=== PATIENT | female | born 1975 | race American Indian/Alaskan Native ===

== ENCOUNTER 2021-10-23 00:03 | Emergency (ER) | payer OTHER ==
[2021-10-23 01:18] LABS: Basophils % (Auto) 0.6 % (0.0-1.8); Eosinophils % (Auto) 0.3 % (0.0-4.3); Hematocrit 41.6 % (30.3-42.9); Hemoglobin 13.7 gm/dl (10.1-14.3); Lymphocytes # (Auto) 1.1 K/mm3 (1.2-5.4); Lymphocytes % (Auto) 22.7 % (13.4-35.0); Mean Corpuscular HGB Conc 33 % (30-34); Mean Corpuscular Volume 77 fl (79-97); Monocytes # (Auto) 0.7 K/mm3 (0.0-0.8); Monocytes % (Auto) 13.5 % (0.0-7.3); Platelet Count 171 K/mm3 (140-440); Red Blood Count 5.38 M/mm3 (3.65-5.03); Red Cell Distribution Width 15.8 % (13.2-15.2)
[2021-10-23 01:34] LABS: Alanine Aminotransferase 43 units/L (7-56); Albumin 4.5 g/dL (3.9-5); BUN/Creatinine Ratio 10; Blood Urea Nitrogen 9 mg/dL (7-17); Calcium 8.7 mg/dL (8.4-10.2); Hemolysis Index 3
[2021-10-23] MEDS ORDERED: HYOSCYAMINE SUBL 0.125 MG TAB SL ONE (06:35)
[2021-10-23] MEDS ORDERED: ONDANSETRON 4 MG ODT TAB PO STA (06:35)
[2021-10-23] MEDS ORDERED: SODIUM CHLORIDE 0.9% 1000 ML 1,000 ML IV ONE ×2 (15:42→18:14)
--- NOTE | 2021-10-23 17:57 | Emergency Department Report ---
ED Abdominal Pain HPI - General Chief Complaint: Nausea/Vomiting/Diarrhea Stated Complaint: NAUSEA PUI?: No Time Seen by Provider: 10/23/21 05:05 Source: patient Mode of arrival: Ambulatory Limitations: No Limitations - History of Present Illness Initial Comments: Patient is a 46-year-old obese female that comes to the ER with abdominal pain, generalized in nature. She describes it as a cramping. Associated with nausea and vomiting. No diarrhea. She is due for her menses at the current time. MD Complaint: abdominal pain -: Gradual, days(s) Location: diffuse Severity scale (0 -10): 3 Quality: cramping Consistency: intermittent Improves With: nothing Worsens With: nothing Associated Symptoms: denies other symptoms, nausea, vomiting. denies: diarrhea, fever, chills, constipation, dysuria, hematemesis, hematochezia, melena, hematuria, anorexia, syncope - Related Data Allergies Allergy/AdvReac Type Severity Reaction Status Date / Time No Known Allergies Allergy Unverified 10/23/21 00:20 ED Review of Systems ROS: Stated complaint: NAUSEA Other details as noted in HPI Comment: All other systems reviewed and negative ED Past Medical Hx - Past Medical History Previous Medical History?: Yes Additional medical history: Obesity - Surgical History Past Surgical History?: Yes Additional Surgical History: Shoulder, Hamida talk - Family History Family history: no significant - Social History Smoking Status: Never Smoker Substance Use Type: None ED Physical Exam - General Limitations: No Limitations General appearance: alert, in no apparent distress - Head Head exam: Present: atraumatic, normocephalic - Eye Eye exam: Present: normal appearance - ENT ENT exam: Present: mucous membranes moist - Neck Neck exam: Present: normal inspection - Respiratory Respiratory exam: Present: normal lung sounds bilaterally. Absent: respiratory distress - Cardiovascular Cardiovascular Exam: Present: regular rate, normal rhythm. Absent: systolic murmur, diastolic murmur, rubs, gallop - GI/Abdominal GI/Abdominal exam: Present: soft, normal bowel sounds - Extremities Exam Extremities exam: Present: normal inspection - Back Exam Back exam: Present: normal inspection - Neurological Exam Neurological exam: Present: alert, oriented X3 - Psychiatric Psychiatric exam: Present: normal affect, normal mood - Skin Skin exam: Present: warm, dry, intact, normal color. Absent: rash ED Course Vital Signs 10/23/21 10/23/21 00:17 08:40 Temperature 98.9 F 98.3 F Pulse Rate 91 H 78 Respiratory 20 18 Rate Blood Pressure 172/117 142/90 [Right] O2 Sat by Pulse 95 97 Oximetry ED Medical Decision Making - Lab Data Result diagrams: 10/23/21 00:45 10/23/21 00:45 - Medical Decision Making 1800 patient remains in [facility]. I have reinterviewed her, updated orders. Her UA is pending and then she will go for CT scan. Critical care attestation.: If time is entered above; I have spent that time in minutes in the direct care of this critically ill patient, excluding procedure time. ED Disposition Clinical Impression: Abdominal pain Disposition: 30 STILL A PATIENT Is pt being admited?: No Does the pt Need Aspirin: No Condition: Stable Referrals: NEMO REVELES MD [Primary Care Provider] - 3-5 Days
[2021-10-23] MEDS ORDERED: ONDANSETRON 4 MG/2 ML INJ IV ONE ×2 (18:00→18:14)
[2021-10-23] MEDS ORDERED: DICYCLOMINE 10 MG CAP PO ONE (18:15)
--- NOTE | 2021-10-23 18:18 | Emergency Department Report ---
ED N/V/D HPI - General Chief complaint: Nausea/Vomiting/Diarrhea Stated complaint: NAUSEA Time Seen by Provider: 10/23/21 05:05 Source: patient Mode of arrival: Ambulatory Limitations: No Limitations - History of Present Illness Initial comments: 46-year-old female with history of gallstones presents to the emergency department complaining of nausea, vomiting, and moderate epigastric abdominal cramping since 11 AM yesterday. Patient denies any fever, chills, diarrhea, or constipation. - Related Data Allergies Allergy/AdvReac Type Severity Reaction Status Date / Time No Known Allergies Allergy Unverified 10/23/21 00:20 ED Review of Systems ROS: Stated complaint: NAUSEA Other details as noted in HPI Constitutional: denies: chills, fever Eyes: denies: eye pain, eye discharge, vision change ENT: denies: ear pain, throat pain Respiratory: denies: cough, shortness of breath, wheezing Cardiovascular: denies: chest pain, palpitations Endocrine: no symptoms reported Gastrointestinal: denies: abdominal pain, nausea, diarrhea Genitourinary: denies: urgency, dysuria, discharge Musculoskeletal: denies: back pain, joint swelling, arthralgia Skin: denies: rash, lesions Neurological: denies: headache, weakness, paresthesias Psychiatric: denies: anxiety, depression Hematological/Lymphatic: denies: easy bleeding, easy bruising ED Past Medical Hx - Past Medical History Previous Medical History?: Yes Additional medical history: Obesity - Surgical History Past Surgical History?: Yes Additional Surgical History: Shoulder, Hamida talk - Social History Smoking Status: Never Smoker Substance Use Type: None ED Physical Exam - General Limitations: No Limitations (Next) General appearance: alert, in no apparent distress - Head Head exam: Present: atraumatic, normocephalic - Eye Eye exam: Present: normal appearance - ENT ENT exam: Present: mucous membranes moist - Neck Neck exam: Present: normal inspection - Respiratory Respiratory exam: Present: normal lung sounds bilaterally. Absent: respiratory distress - Cardiovascular Cardiovascular Exam: Present: regular rate, normal rhythm. Absent: systolic murmur, diastolic murmur, rubs, gallop - GI/Abdominal GI/Abdominal exam: Present: soft, normal bowel sounds - Extremities Exam Extremities exam: Present: normal inspection - Back Exam Back exam: Present: normal inspection - Neurological Exam Neurological exam: Present: alert, oriented X3 - Psychiatric Psychiatric exam: Present: normal affect, normal mood - Skin Skin exam: Present: warm, dry, intact, normal color. Absent: rash ED Course Vital Signs 10/23/21 10/23/21 00:17 08:40 Temperature 98.9 F 98.3 F Pulse Rate 91 H 78 Respiratory 20 18 Rate Blood Pressure 172/117 142/90 [Right] O2 Sat by Pulse 95 97 Oximetry - Reevaluation(s) Reevaluation #1: 10/23/21 19:55 Patient reports resolution of the pain and nausea. Patient able to tolerate p.o. Patient will be discharged home and follow-up with gastroenterology. ED Medical Decision Making - Lab Data Result diagrams: 10/23/21 00:45 10/23/21 00:45 Critical care attestation.: If time is entered above; I have spent that time in minutes in the direct care of this critically ill patient, excluding procedure time. ED Disposition Clinical Impression: Abdominal pain Disposition: 30 STILL A PATIENT Condition: Stable Referrals: NEMO REVELES MD [Primary Care Provider] - 3-5 Days
--- NOTE | 2021-10-23 19:34 | Ultrasound Report ---
ULTRASOUND ABDOMEN, LIMITED (RIGHT UPPER QUADRANT) INDICATION / CLINICAL INFORMATION: upper abdominal pain and vomiting r/o cholecystiti. COMPARISON: None available. FINDINGS: PANCREAS: Visualized portion shows no significant abnormality. LIVER: Increased echogenicity of the liver. Hepatomegaly measuring up to 19.5 cm. Hepatopedal flow wi thin the portal vein. GALLBLADDER: Cholelithiasis. Negative sonographic Redmond's sign. No pericholecystic fluid. BILE DUCTS: No significant abnormality. Common bile duct measures 5 mm. FREE FLUID: None. ADDITIONAL FINDINGS: None. IMPRESSION: 1. Cholelithiasis without evidence of acute cholecystitis. 2. Hepatic steatosis and hepatomegaly. Signer Name: Perez Martin DO Signed: 10/23/2021 7:30 PM Workstation Name: [id number]
[2021-10-23 20:16] VITALS: BP 138/76
== END 2021-10-23 20:16 | disposition home or self-care (01) ==
LOC: ED 00:03
DX: R10.13 Epigastric pain (principal); E66.01 Morbid (severe) obesity due to excess calories; Z98.890 Other specified postprocedural states
CPT/HCPCS: 36415; 76705; 80053; 83690; 84703; 85025; 96361; 96374; 99284; J2405; J7030